=== PATIENT | female | born 1975 | race Caucasian/White ===

== ENCOUNTER 2016-10-15 10:27 | Emergency (ER) | payer MEDICAID ==
--- NOTE | 2016-10-15 11:33 | EDPHY ---
H & P Stated Complaint: Right elbow pain. HPI/ROS: CHIEF COMPLAINT: Right arm infection HISTORY OF PRESENT ILLNESS: Patient complains of redness to the right arm for 1 -2 weeks. It is mild to moderate 1st. It has worsened. It is minimally painful. There is no pain with flexion, extension, supination, or pronation of the right arm. No fever. No chills. No numbness or tingling. No significant swelling. She feels as though she might have got a scratch originally on the skin. She has not yet been seen for this. No other associated complaints or modifying factors. Tetanus is up-to-date less than 10 years ago REVIEW OF SYSTEMS: Ten systems reviewed and are negative unless otherwise noted in the HPI PAST MEDICAL HISTORY: Reviewed SOCIAL HISTORY: Occasional smoker FAMILY HISTORY: Noncontributory EXAMINATION General Appearance: Alert, no distress Head: normocephalic, atraumatic Eyes: Pupils equal and round, no conjunctival pallor or injection ENT, Mouth: Mucous membranes moist Neck: Normal inspection, supple, non-tender Respiratory: No retractions or distress Cardiovascular: Regular rate. Pulses intact distally in symmetrically Neurological: A&O, nonfocal, normal gait Skin: Warm and dry. There is cellulitis of the right posterior upper extremity. No fluctuance. No induration. No laceration or open sores. She does have a nonspecific dermatitis to the upper extremities that she attributes to stand fleas. Extremities: Nontender, no edema. There is full active and passive range of motion of both elbows without any pain or hesitation. No fluctuance. No evidence of DVT or septic joint. Psychiatric: Mood and affect normal DIFFERENTIAL DIAGNOSES: Including but not limited to cellulitis, DVT, septic joint, abscess MDM: 11:30 a.m. Right upper extremity cellulitis that it starts proximal and extends distal to the elbow. She has no bony tenderness of the elbow. She has no pain with flexion extension, active or passive. She does not want x-ray of the elbow. I do feel she warrants oral antibiotics for cellulitis. I have no suspicion for DVT as this is a localized cellulitis without circumferential erythema. There is no edema of the arm. No laceration. Discharged home with oral antibiotics. Recheck in 48 hours. Return here for worsening symptoms, any pain in the joint. Also return for any fever. She is comfortable with this plan and discharged home stable condition SUPERVISION: This patient was independently evaluated without direct examination by the attending physician. Case was discussed with attending physician. Source: Patient Exam Limitations: No limitations - Personal History LMP (Females 10-55): Unknown Current Tetanus/Diphtheria Vaccine: Unsure Current Tetanus Diphtheria and Acellular Pertussis (TDAP): Unsure - Medical/Surgical History Hx Asthma: No Hx Chronic Respiratory Disease: No Hx Diabetes: No Hx Cardiac Disease: No Hx Renal Disease: No Hx Cirrhosis: No Hx Alcoholism: No Hx HIV/AIDS: No Hx Splenectomy or Spleen Trauma: No Other PMH: Denies - Social History Smoking Status: Never smoked Constitutional: Initial Vital Signs Temperature (C) 98.4 F 10/15/16 10:42 Heart Rate 87 10/15/16 10:42 Respiratory Rate 15 10/15/16 10:42 Blood Pressure 145/76 H 10/15/16 10:42 O2 Sat (%) 98 10/15/16 10:42 O2 Delivery Mode Room Air Allergies/Adverse Reactions: acetaminophen [From Percocet] Allergy (Verified 10/15/16 10:40) beeswax Allergy (Verified 10/15/16 10:41) codeine Allergy (Verified 10/15/16 10:41) oxycodone [From Percocet] Allergy (Verified 10/15/16 10:40) tree nut [Nuts] Allergy (Verified 10/15/16 10:40) Home Medications: Medication Instructions Recorded Clindamycin 300 mg PO Q6 #80 cap 10/15/16 Departure - Departure Disposition: Home, Routine, Self-Care Clinical Impression: Cellulitis of arm, right Condition: Good Instructions: Cellulitis (ED) Additional Instructions: 1. Antibiotics as discussed 2. Return here in 48 hours for recheck of the wound or with primary care physician 3. Return to the ER sooner for any fever, pain in the right elbow, worsening redness, swelling of the right arm Referrals: NONE *PRIMARY CARE P,. [Primary Care Provider] - As per Instructions [facility],. [Clinic] - As per Instructions Daniella Barger MD [place] [place] - As per Instructions Prescriptions: Clindamycin 300 mg PO Q6 #80 cap
[2016-10-15 11:49] VITALS: BP 125/83; PULSE 85; RESP 16; TEMP 98.2; O2SAT 96
== END 2016-10-15 11:43 | disposition home or self-care (01) ==
DX: L03.113 Cellulitis of right upper limb (principal)

== ENCOUNTER 2016-10-17 19:30 | Emergency (ER) | payer MEDICAID ==
[2016-10-17 19:40] VITALS: BP 135/84; PULSE 88; RESP 16; TEMP 99; O2SAT 99
--- NOTE | 2016-10-17 19:51 | EDPHY ---
H & P Stated Complaint: wound recheck; worsening HPI/ROS: CHIEF COMPLAINT: Right arm skin infection, elbow pain HISTORY OF PRESENT ILLNESS: Patient was here 2 days ago, and I evaluated her for a right arm infection. At that time she had a cellulitis over the right posterior arm spanning the brachium and the forearm. I discharged her home with clindamycin. She has been taking this as prescribed. She says the redness had significantly improved. Her swelling improved. Her pain improved. Until this morning around 4:30 a.m., when she noted some more swelling over the right posterior elbow. She notes some drainage from the site. It is mildly painful. Still difficulty or pain bending or extending the elbow, or rotating the arm and pronation or supination. No fever or chills. No numbness or tingling. No other associated complaints or modifying factors. REVIEW OF SYSTEMS: Ten systems reviewed and are negative unless otherwise noted in the HPI PAST MEDICAL HISTORY: Reviewed SOCIAL HISTORY: Daily cannabis use FAMILY HISTORY: Noncontributory EXAMINATION General Appearance: Alert, no distress, unkempt Head: normocephalic, atraumatic Eyes: Pupils equal and round, no conjunctival pallor or injection ENT, Mouth: Mucous membranes moist Neck: Normal inspection, supple, non-tender Respiratory: Lungs are clear retractions or distress Cardiovascular: Regular rate. Pulses intact distally with symmetric radial pulses are 2+ Neurological: A&O, nonfocal, normal gait. Two point sensation intact in the right upper extremity. Radial and median distributions intact. Skin: Warm and dry, no rash. There is mild erythema over the right posterior arm. This is improved from my previous evaluation of her 2 days ago. There is now a fluctuance over the right olecranon bursa with some spontaneous purulent drainage. There is no warmth to the joint. No evidence of septic arthritis. Extremities: Mild tenderness over the area of the right olecranon bursa. There is no tenderness of the humeral condyles or radial head. Range of motion is intact and painless with flexion, extension, supination, pronation of the right upper extremity and elbow. Neurovascular intact distal to the area of bursitis Psychiatric: Mood and affect normal DIFFERENTIAL DIAGNOSES: Including but not limited to infected olecranon bursa, septic joint, cellulitis , arm and cellulitis, abscess MDM: 7:50 p.m. Right arm cellulitis that has actually improved, but she now appears to have an infected bursa. There is still no evidence of septic joint as she continues to improve with her level of pain, her range of motion is intact and painless. I do feel she would benefit from a mild incision and drainage or of the purulence. Continue on the antibiotic. I will discuss with my attending physician Dr. Sotelo. 8:[address] Sotelo has evaluated the patient. He agrees that there is no evidence of septic joint. Recommends no incision and drainage of this infected bursa. He recommends that we continue with her clindamycin and let the wound continued to drain. Patient has an appointment on Tuesday at [facility], and we are in agreement that she should be evaluated on that day. She should return to the ER if unable to keep that appointment. She should return to the ER for any worsening drainage, pain of the elbow, difficulty flexing or extending the elbow , difficulty with supination or pronation. She should also return for any fever. She should also return should she develop any numbness, tingling or weakness of the extremity. She is comfortable with this plan and she is discharged home with a nonocclusive dressing to the bursa. She is in no acute distress, full range of motion and vital signs stable at time of discharge. SUPERVISION: Patient was evaluated in conjunction with the supervising physician. Please see their note for details. Source: Patient, Old records Exam Limitations: No limitations - Personal History LMP (Females 10-55): 22-28 Days Ago Current Tetanus/Diphtheria Vaccine: Yes - Medical/Surgical History Hx Asthma: No Hx Chronic Respiratory Disease: No Hx Diabetes: No Hx Cardiac Disease: No Hx Renal Disease: No Hx Cirrhosis: No Hx Alcoholism: No Hx HIV/AIDS: No Hx Splenectomy or Spleen Trauma: No Other PMH: PMHx: asthma, PTSD, adjustment disorder, cervical, uteral, and vulval cancer, scoliosis. PSHx: LEAP, laser surgery on vulva - Social History Smoking Status: Never smoked Constitutional: Initial Vital Signs Temperature (C) 99.0 F 10/17/16 19:35 Heart Rate 88 10/17/16 19:35 Respiratory Rate 16 10/17/16 19:35 Blood Pressure 135/84 H 10/17/16 19:35 O2 Sat (%) 99 10/17/16 19:35 O2 Delivery Mode Room Air Allergies/Adverse Reactions: acetaminophen [From Percocet] Allergy (Verified 10/15/16 10:40) bee venom protein (honey bee) Allergy (Verified 10/17/16 19:35) codeine Allergy (Verified 10/15/16 10:41) oxycodone [From Percocet] Allergy (Verified 10/15/16 10:40) tree nut [Nuts] Allergy (Verified 10/15/16 10:40) Home Medications: Medication Instructions Recorded Clindamycin 300 mg PO Q6 #80 cap 10/15/16 Proair Hfa 10/17/16 Departure - Departure Disposition: Home, Routine, Self-Care Clinical Impression: Infected olecranon bursa Qualifiers: Laterality: right Qualified Code(s): M71.121 - Other infective bursitis, right elbow Condition: Good Instructions: Cellulitis (ED), Elbow Bursitis (ED) Additional Instructions: 1. Continue your previously prescribed Clindamycin. 2. Follow up with your established appointment on Tuesday at [facility] 3. Return here for any worsening or your condition, difficulty bending, straightening or rotating the right arm or elbow, fever, or chills. Referrals: [facility] [Other] - As per Instructions Sara Phillips MD [Medical Doctor] - As per Instructions
== END 2016-10-17 20:13 | disposition home or self-care (01) ==
DX: M71.121 Other infective bursitis, right elbow (principal); J45.909 Unspecified asthma, uncomplicated; Z85.41 Personal history of malignant neoplasm of cervix uteri; Z85.42 Personal history of malignant neoplasm of other parts of uterus; Z85.44 Personal history of malignant neoplasm of other female genital organs

== ENCOUNTER 2016-10-20 11:57 | Emergency (ER) | payer MEDICAID ==
[2016-10-20 12:08] VITALS: BP 116/59; PULSE 58; RESP 17; TEMP 97.9; O2SAT 99
--- NOTE | 2016-10-20 13:30 | EDPHY ---
H & P Stated Complaint: lac r elbow 3 wks ago/here for wound eval Time Seen by Provider: 10/20/16 13:18 HPI/ROS: CHIEF COMPLAINT: Right elbow recheck HISTORY OF PRESENT ILLNESS: 40-year-old female seen emergency department 3 days ago diagnosed with likely right elbow olecranon bursitis, started on oral clindamycin. Prior to that she was diagnosed with cellulitis and was on a course of antibiotics for that. She is in the ER for recheck. She had an appointment [facility] today which she was unable to keep Therefore comes to the ER. She states that she is feeling significant improvement. States that the soft tissue swelling to the dorsal aspect of the elbow has decreased notably, the erythema has decreased notably, her range of motion as increased notably. PHYSICAL EXAM (Prior to examination, patient consented to physical exam, hands were washed and my usual and customary physical exam procedures followed) 1) GENERAL: Well-developed, well-nourished, alert and oriented. Appears to be in no acute distress. 2) HEAD: Normocephalic 3) HEENT: sclera anicteric 4) LUNGS: Breathing comfortably. 5) SKIN: mild erythema to the dorsal elbow. No lymphangitic streaking. No crepitus. 6) MUSCULOSKELETAL: positive range of motion, full extension, flexion to approximately 90 degrees of the right elbow, supination pronation without pain. 7) NEUROLOGIC: Full sensation distally - Personal History LMP (Females 10-55): 22-28 Days Ago Current Tetanus/Diphtheria Vaccine: Yes - Medical/Surgical History Hx Asthma: No Hx Chronic Respiratory Disease: No Hx Diabetes: No Hx Cardiac Disease: No Hx Renal Disease: No Hx Cirrhosis: No Hx Alcoholism: No Hx HIV/AIDS: No Hx Splenectomy or Spleen Trauma: No Other PMH: PMHx: asthma, PTSD, adjustment disorder, cervical, uteral, and vulval cancer, scoliosis. PSHx: LEAP, laser surgery on vulva - Social History Smoking Status: Current every day smoker Constitutional: Initial Vital Signs Temperature (C) 36.6 C 10/20/16 12:05 Heart Rate 58 L 10/20/16 12:05 Respiratory Rate 17 10/20/16 12:05 Blood Pressure 116/59 L 10/20/16 12:05 O2 Sat (%) 99 08/09/17 12:05 O2 Delivery Mode Room Air Allergies/Adverse Reactions: acetaminophen [From Percocet] Allergy (Verified 10/20/16 12:05) bee venom protein (honey bee) Allergy (Verified 10/20/16 12:05) codeine Allergy (Verified 10/20/16 12:05) oxycodone [From Percocet] Allergy (Verified 10/20/16 12:05) tree nut [Nuts] Allergy (Verified 10/20/16 12:05) Home Medications: Medication Instructions Recorded Clindamycin 300 mg PO Q6 #80 cap 10/15/16 Proair Hfa 10/17/16 Medical Decision Making ED Course/Re-evaluation: This patient appears to be responding well to her oral clindamycin. She has resolving septic bursitis, increased range of motion. Recommend she continue this until finished, she is unable to be seen the [facility] today. Currently the disease case manager is not available in the emergency department. Recommend patient follow up with [facility] in 2 days. Usual and customary wound and orthopedic precautions instructions provided. Departure - Departure Disposition: Home, Routine, Self-Care Clinical Impression: Bursitis of right elbow Qualifiers: Elbow bursitis location: olecranon bursitis Qualified Code(s): M70.21 - Olecranon bursitis, right elbow Condition: Good Instructions: Elbow Bursitis (ED) Additional Instructions: Return to the ER if you develop red streaks, worsening pain, or any other symptoms that concern Referrals: [facility] [Other] - 1-2 days without fail
== END 2016-10-20 13:45 | disposition home or self-care (01) ==
DX: M70.21 Olecranon bursitis, right elbow (principal); J45.909 Unspecified asthma, uncomplicated; F17.200 Nicotine dependence, unspecified, uncomplicated; Z85.41 Personal history of malignant neoplasm of cervix uteri; Z85.42 Personal history of malignant neoplasm of other parts of uterus

== ENCOUNTER 2016-10-27 13:24 | Emergency (ER) | payer MEDICAID ==
[2016-10-27 13:36] VITALS: BP 114/74; PULSE 76; RESP 16; TEMP 98.6; O2SAT 96
--- NOTE | 2016-10-27 15:03 | EDPHY ---
H & P Stated Complaint: Still has infection R elbow Time Seen by Provider: 10/27/16 14:48 HPI/ROS: CHIEF COMPLAINT: Wound check HISTORY OF PRESENT ILLNESS: The patient presents to the ED requesting wound check of her right elbow. The patient has an olecranon bursitis which she treated with clindamycin. She had improvement of her erythema. She noticed a scant amount of discharge from the elbow today which prompted her visit to the emergency department. The patient has no complaints of fever. She denies numbness or weakness. She denies additional complaints. REVIEW OF SYSTEMS: A comprehensive 10 point review of systems is otherwise negative aside from elements mentioned in the history of present illness. Source: Patient Exam Limitations: No limitations - Personal History LMP (Females 10-55): Now Current Tetanus Diphtheria and Acellular Pertussis (TDAP): Yes - Medical/Surgical History Hx Asthma: No Hx Chronic Respiratory Disease: No Hx Diabetes: No Hx Cardiac Disease: No Hx Renal Disease: No Hx Cirrhosis: No Hx Alcoholism: No Hx HIV/AIDS: No Hx Splenectomy or Spleen Trauma: No Other PMH: PMHx: asthma, PTSD, adjustment disorder, cervical, uteral, and vulval cancer, scoliosis. PSHx: LEAP, laser surgery on vulva - Social History Smoking Status: Current every day smoker - Physical Exam Exam: General Appearance: Disheveled, no acute distress Eyes: Pupils equal and round no pallor or injection ENT, Mouth: Mucous membranes moist Respiratory: There are no retractions, lungs are clear to auscultation Cardiovascular: Regular rate and rhythm Gastrointestinal: Abdomen is soft and nontender, no masses, bowel sounds normal Neurological: Neurologically intact throughout the right upper extremity Skin: No cellulitis or abscess noted Musculoskeletal: Neck is supple nontender Extremities: Evidence of old right olecranon bursitis present, no evidence of active cellulitis, drainage or recurrent effusion Constitutional: Initial Vital Signs Temperature (C) 37 C 10/27/16 13:25 Heart Rate 76 10/27/16 13:25 Respiratory Rate 16 10/27/16 13:25 Blood Pressure 114/74 10/27/16 13:25 O2 Sat (%) 96 10/27/16 13:25 O2 Delivery Mode Room Air Allergies/Adverse Reactions: acetaminophen [From Percocet] Allergy (Verified 10/27/16 13:24) bee venom protein (honey bee) Allergy (Verified 10/27/16 13:24) codeine Allergy (Verified 10/27/16 13:24) oxycodone [From Percocet] Allergy (Verified 10/27/16 13:24) tree nut [Nuts] Allergy (Verified 10/27/16 13:24) Home Medications: Medication Instructions Recorded Clindamycin 300 mg PO Q6 #80 cap 10/15/16 Proair Hfa 10/17/16 Medical Decision Making ED Course/Re-evaluation: The patient presents to the emergency department for a wound check. She has no evidence of a recurrent septic bursitis, cellulitis or abscess. I do feel that the patient can be discharged home without additional antibiotic therapy. She is discharged home with customary aftercare instructions and return precautions. Departure - Departure Disposition: Home, Routine, Self-Care Clinical Impression: Wound check, abscess Condition: Good Instructions: Elbow Bursitis (ED) Additional Instructions: 1. Please keep your elbow clean and dry. 2. Return to the ED for increased pain, swelling, fever, redness or other concerns. 3. Please schedule a follow-up appointment with your primary care provider as needed. Referrals: [facility] [Other] - As per Instructions
== END 2016-10-27 15:11 | disposition home or self-care (01) ==
DX: Z48.01 Encounter for change or removal of surgical wound dressing (principal); F17.200 Nicotine dependence, unspecified, uncomplicated; J45.909 Unspecified asthma, uncomplicated; Z85.41 Personal history of malignant neoplasm of cervix uteri; Z85.44 Personal history of malignant neoplasm of other female genital organs

== ENCOUNTER → 2017-04-18 | Outpatient (CLI) | payer MEDICAID | LOC: FIMAGING 12:47 | PROVIDERS: ATTEND Family Medicine | DX: O09.521 Supervision of elderly multigravida, first trimester (principal); O26.21 Pregnancy care for patient with recurrent pregnancy loss, first trimester; O99.331 Smoking (tobacco) complicating pregnancy, first trimester; Z87.59 Personal history of other complications of pregnancy, childbirth and the puerperium; Z3A.12 12 weeks gestation of pregnancy ==

== ENCOUNTER → 2017-06-06 | Outpatient (CLI) | payer MEDICAID | LOC: FIMAGING 11:14 | PROVIDERS: ATTEND Family Medicine | DX: O09.522 Supervision of elderly multigravida, second trimester (principal); O26.22 Pregnancy care for patient with recurrent pregnancy loss, second trimester; O34.42 Maternal care for other abnormalities of cervix, second trimester; O99.332 Smoking (tobacco) complicating pregnancy, second trimester; Z59.0 Homelessness; Z3A.19 19 weeks gestation of pregnancy; Z87.59 Personal history of other complications of pregnancy, childbirth and the puerperium ==

== ENCOUNTER → 2017-06-20 | Outpatient (CLI) | payer MEDICAID | LOC: FIMAGING 12:19 | PROVIDERS: ATTEND Family Medicine | DX: O09.522 Supervision of elderly multigravida, second trimester (principal); Z3A.21 21 weeks gestation of pregnancy; Z59.0 Homelessness ==

== ENCOUNTER → 2017-06-28 | Outpatient (CLI) | payer MEDICAID | LOC: FIMAGING 07:49 | PROVIDERS: ATTEND Family Medicine | DX: O09.522 Supervision of elderly multigravida, second trimester (principal); O09.212 Supervision of pregnancy with history of pre-term labor, second trimester; Z3A.22 22 weeks gestation of pregnancy; F17.210 Nicotine dependence, cigarettes, uncomplicated ==

== ENCOUNTER 2017-07-02 16:56 | Emergency (ER) | payer MEDICAID ==
--- NOTE | 2017-07-02 17:17 | EDPHY ---
H & P Time Seen by Provider: 07/02/17 17:06 HPI/ROS: Chief complaint. Dental pain HPI. 41-year-old female with dental pain. She saw a dentist at [facility] 2 days ago. Started on clindamycin. She has a follow-up appointment on Tuesday. Complains of continued pain despite the antibiotics. No fever. Patient is also 23 weeks . No trouble swallowing. ROS Constitutional. no fever/chills, no weakness Eyes. no problems with vision ENT. Dental pain Cardiovascular. no chest pain Respiratory. no shortness of breath, no cough Abdominal. no abdominal pain, no nausea/vomiting, no diarrhea . no problems urinating MS. no calf pain/swelling, no neck/back pain, no joint pain Skin. no rash Lymph. no swollen glands Neuro. no headache, no dizziness, no difficulty walking or with speech Past Medical/Surgical History: Asthma, PTSD, adjustment disorder, cervical and vulvar cancer, scoliosis, LEEP procedure Social History: Single, daily smoker, no alcohol Smoking Status: Current every day smoker Physical Exam: General Appearance: Alert well-developed female mild distress vital signs are stable. Afebrile Eyes: Pupils equal and round no pallor or injection. ENT, widespread dental caries. Slight erythema to the left upper incisor socket area. No abscess. No purulent drainage. Respiratory: There are no retractions, lungs are clear to auscultation. Cardiovascular: Regular rate and rhythm. Gastrointestinal: Abdomen is soft and nontender, no masses, bowel sounds normal. Neurological: Awake and alert, sensory and motor exams grossly normal. Skin: Warm and dry, no rashes. Musculoskeletal: Neck is supple nontender. Extremities symmetrical, full range of motion. Psychiatric: Patient is oriented X 3, there is no agitation. Constitutional: Initial Vital Signs Temperature (C) 37 C 07/02/17 17:02 Heart Rate 92 07/02/17 17:02 Respiratory Rate 18 07/02/17 17:02 Blood Pressure 122/71 H 07/02/17 17:02 O2 Sat (%) 98 07/02/17 17:02 O2 Delivery Mode Room Air Allergies/Adverse Reactions: acetaminophen [From Percocet] Allergy (Verified 07/02/17 16:59) bee venom protein (honey bee) Allergy (Verified 07/02/17 16:59) codeine Allergy (Verified 07/02/17 16:59) oxycodone [From Percocet] Allergy (Verified 07/02/17 16:59) tree nut [Nuts] Allergy (Verified 07/02/17 16:59) Home Medications: Medication Instructions Recorded Clindamycin 300 mg PO Q6 #80 cap 10/15/16 Proair Hfa 10/17/16 Medical Decision Making ED Course/Re-evaluation: Ibuprofen 600 mg. The patient and I discussed treatment plan including continuing the clindamycin. We talked about keeping her follow-up appointment on Tuesday. We talked about criteria for return and importance of follow-up and further evaluation. She expresses understanding and agreement Differential Diagnosis: Dental caries with tooth socket infection but no abscess. On antibiotics. 23 week Departure - Departure Disposition: Home, Routine, Self-Care Clinical Impression: Dental caries Condition: Good Instructions: Toothache (ED) Additional Instructions: Continue clindamycin as prescribed. Ibuprofen 600 mg every 6 hr. May use ibuprofen until 26 weeks . Tylenol 1000 mg every 4-6 hours for pain. Return for worsening swelling or pain or fever. Keep your follow-up appointment with [facility] on Tuesday Referrals: Gricelda Hatch, PAC [Primary Care Provider] - 2-3 days, if not improved
[2017-07-02] MEDS ORDERED: IBUPROFEN 600 MG TAB PO ONE (17:28)
[2017-07-02 17:39] VITALS: BP 135/98
== END 2017-07-02 17:40 | disposition home or self-care (01) ==
DX: K02.9 Dental caries, unspecified (principal); J45.909 Unspecified asthma, uncomplicated; F17.200 Nicotine dependence, unspecified, uncomplicated; Z85.44 Personal history of malignant neoplasm of other female genital organs

== ENCOUNTER → 2017-07-04 | Outpatient (CLI) | payer MEDICAID | LOC: FIMAGING 12:50 | PROVIDERS: ATTEND Family Medicine | DX: O09.212 Supervision of pregnancy with history of pre-term labor, second trimester (principal); O09.522 Supervision of elderly multigravida, second trimester; O99.332 Smoking (tobacco) complicating pregnancy, second trimester; F17.210 Nicotine dependence, cigarettes, uncomplicated; Z59.0 Homelessness; Z3A.23 23 weeks gestation of pregnancy ==

== ENCOUNTER → 2017-08-22 | Outpatient (CLI) | payer MEDICAID | LOC: FIMAGING 13:48 | PROVIDERS: ATTEND Family Medicine | DX: O24.415 Gestational diabetes mellitus in pregnancy, controlled by oral hypoglycemic drugs (principal); O09.523 Supervision of elderly multigravida, third trimester; O99.333 Smoking (tobacco) complicating pregnancy, third trimester; F17.210 Nicotine dependence, cigarettes, uncomplicated; Z87.59 Personal history of other complications of pregnancy, childbirth and the puerperium; Z3A.30 30 weeks gestation of pregnancy; Z59.0 Homelessness ==

== ENCOUNTER 2017-10-08 17:45 | Inpatient (IN) | payer MEDICAID ==
[2017-10-08] MEDS ORDERED: MISOPROSTOL 200 MCG TAB PO PRN (19:35)
[2017-10-08] MEDS ORDERED: AMMONIA AROMATIC 1 EACH AMP IH PRN (19:35)
[2017-10-08] MEDS ORDERED: IBUPROFEN 600 MG TAB PO PRN (19:35)
[2017-10-08] MEDS ORDERED: EPSOM SALT 454 GM TP PRN (19:35)
[2017-10-08] MEDS ORDERED: LIDOCAINE 1% 300 MG/30 ML SDV SC PRN (19:35)
[2017-10-08] MEDS ORDERED: TERBUTALINE SULFATE 1 MG/ML VIAL IV PRN (19:35)
[2017-10-08] MEDS ORDERED: LR 1,000 ML IV PRN (19:35)
[2017-10-08] MEDS ORDERED: OLIVE OIL 118 ML BTL MISC PRN (19:35)
[2017-10-08] MEDS ORDERED: LIDOCAINE 1% 300 MG/30 ML SDV ONE (19:39)
[2017-10-08] MEDS ORDERED: LR 500 ML IV PRN (19:39)
[2017-10-08] MEDS ORDERED: TERBUTALINE SULFATE 1 MG/ML VIAL ONE (19:40)
[2017-10-08] MEDS ORDERED: OLIVE OIL 118 ML BTL ONE (19:40)
[2017-10-08] MEDS ORDERED: OXYTOCIN 10 UNIT/ML VIAL ONE (19:40)
[2017-10-08] MEDS ORDERED: AMMONIA AROMATIC 1 EACH AMP IH ONE (19:40)
[2017-10-08] MEDS ORDERED: MISOPROSTOL 200 MCG TAB ONE (19:40)
--- NOTE | 2017-10-08 19:46 | PDGENHP ---
History and Physical History and Physical: CARE: [facility] HPI: Kirstie is a 41 y/o at 37 weeks ega who presents to L&D with complaints of SROM of clear fluid at 1515. She is homeless and has received care at [facility]. Does not have custody of her other children - and according to record, patient has been flagged with CPS and may not be able to keep her baby. Has been noted to make delusional statements about medical history and social history. Was planning delivery at [facility], but was brought here by EMS because we were the closest hospital. She is having mild irregular contractions and is leaking clear fluid. Reports baby is active and denies vaginal bleeding. EDC: 10/29/2017 that is based on LMP: 01/22/17 which is known and consistent with Ultrasound at 9 weeks. Her is complicated by: -AMA -Gestational diabetes - taking glyburide 2.5 mg bid -reports blood sugars have been in good control -schizophrenia with psychotic disorder - followed by Angelina Pena at [facility]. Treated with Latuda. -homeless - "camps" in a friends yard in [facility] - states she has housing vouchers lined up after delivery -tobacco use -chronic UTIs - takes Amoxicillin 500 mg daily - asthma Review of Systems: Constitutional: Denies any fever, chills, or fatigue HEENT: denies any visual changes, difficulty swallowing, hearing loss Cardiovascular: Denies any chest pain, palpitations, leg swelling Respiratory: denies any cough, wheezing, or shortness of breathe GI: Denies any nausea, vomiting, diarrhea, constipation : denies any dysuria, urgency, frequency, vaginal bleeding Musculoskeletal: denies any muscle or bone pain Skin: denies any rashes Neuro: denies any headache, seizures, lightheadedness, dizziness, or loss of consciousness Psychiatric: denies any depression, anxiety, or SI/HI thoughts HISTORY: Previous OB history: 36 wks, 42 wks, ; 40 wks; ' 39 wks, ' 37 wks Past medical history: h/o leep 2006, asthma, schizophrenia with psychotic disorder, chronic UTI's, cervical and vulvar cancer per patient report Past surgical history: none Medications: PNV, Glyburide, Latuda, Proair HFA, Amoxicillin Allergies: acetaminophen, bee venom, codeine, oxycodone, tree nuts LABS: Rh: O pos ABS: neg Rubella: Immune HbsAg: NR HIV: NR VDRL: NR 1hr: 153; 3 hr: elevated GC: Neg Chlamydia: Neg Pap: Normal GBS: neg NIPT/AFP WNL PHYSICAL EXAM: Constitutional: WN, A&Ox3 HEENT: normocephalic atraumatic, supple Heart: RRR, no murmur Chest: CTA-B Abdomen: Soft, nontender, gravid SVE: 3/90/-3 Extremities: sml pedal edema, negative gus's sign Neuro: grossly normal Psych: normal affect assessment: Reassuring FHTs, baseline 130s +accels, no decels, moderate variability Contractions: toco q 4-8 mild Assessment: 1) 41 yo with IUP@37 weeks ega 2) SROM without active labor 3) GBS neg 4) Cat 1 FHR tracing 5) Gestational diabetic 6) homeless with significant social issues and mental health challenges Plan: 1) Admit to L&D 2) Pitocin augmentation 3) Blood sugars q 2 hours 4) clear liquid diabetic diet 5) Epidural per patient request 6) Social work consult 7) UDS 8) Anticipate
[2017-10-08] MEDS ORDERED: OXYTOCIN/RINGERS LACTATE 500 ML IV SCH (20:00)
[2017-10-08 20:25] LABS: PLATELET COUNT 223 10^3/uL (150-400)
[2017-10-08] MEDS ORDERED: PHENYLEPHRINE HCL 100 MCG/ML SYR ONE (20:46)
[2017-10-08] MEDS ORDERED: fentaNYL 200 MCG, BUPIVACAINE 0.5% 20 ML in NS 100 ML EP SCH (21:00)
--- NOTE | 2017-10-08 21:19 | PREANESOB ---
Obstetric Pre-Anesthesia Info - General Info Proposed Procedure: labor epidural : 6 Para: 4 NICANOR: 10/29/17 Gestational Age: 37 week(s) and 0 day(s) Anesthesia ROS: wnl Allergies/Adverse Reactions: Allergy/AdvReac Type Severity Reaction Status Date / Time acetaminophen [From Percocet] Allergy Verified 07/02/17 16:59 bee venom protein (honey bee) Allergy Verified 07/02/17 16:59 codeine Allergy Verified 07/02/17 16:59 oxycodone [From Percocet] Allergy Verified 07/02/17 16:59 tree nut [Nuts] Allergy Verified 07/02/17 16:59 Home Medications: Medication Instructions Recorded Clindamycin 300 mg PO Q6 #80 cap 10/15/16 Proair Hfa 10/17/16 Visit Medications: Generic Name Dose Route Start Last Admin Trade Name Freq PRN Reason Stop Dose Admin Ammonia (Aromatic Spirit) 1 each 10/08/17 19:35 Ammonia Aromatic IH 10/18/17 19:34 ONCE PRN Fainting Lactated Ringer's 1,000 mls @ 0 mls/hr 10/08/17 19:35 10/08/17 20:28 Lr IV 10/09/17 19:34 1,000 mls PRN PRN Administration SEE PROTOCOL CONDITIONS Protocol Per Protocol Lactated Ringer's 500 mls @ 500 mls/hr 10/08/17 19:39 Lr IV 10/09/17 19:39 PRN PRN Maternal Hypotension Oxytocin/Lactated Ringer's 500 mls @ 0 mls/hr 10/08/17 20:00 10/08/17 20:30 Pitocin 30 Units/Lr (Premix) IV 04/06/18 19:59 500 mls CONT MAREN Administration Protocol Per Protocol Fentanyl 200 mcg/ Bupivacaine 100 mls @ 0 mls/hr 10/08/17 21:00 HCl 20 ml/ Sodium Chloride EP 10/18/17 20:59 CONT MAREN Protocol As Directed Lactated Ringer's 500 mls @ 0 mls/hr 10/08/17 21:30 Lr IV 04/06/18 21:29 CONT MAREN As Directed Ibuprofen 600 mg 10/08/17 19:35 Motrin PO ONCE PRN post , pain Lidocaine HCl 300 mg 10/08/17 19:35 Lidocaine Hcl 1% SC 04/06/18 19:34 ONCE PRN episiotomy Magnesium Sulfate 454 gm 10/08/17 19:35 Epsom Salt TP 04/06/18 19:34 Q1H PRN perineal discomfort Misoprostol 800 - 1,000 mcg 10/08/17 19:35 Cytotec PO 04/06/18 19:34 ONCE PRN Vaginal Atony/Bleeding Bishop Oil 118 ml 10/08/17 19:35 Sweet Oil MISC 04/06/18 19:34 ONCE PRN perineal massage Terbutaline Sulfate 0.25 mg 10/08/17 19:35 Brethine IV 04/06/18 19:34 ONCE PRN Tachysystole Discontinued Medications Generic Name Dose Route Start Last Admin Trade Name Freq PRN Reason Stop Dose Admin Ammonia (Aromatic Spirit) Confirm 10/08/17 19:40 Ammonia Aromatic Administered 10/08/17 19:41 Dose 1 each IH .STK-MED ONE Lidocaine HCl Confirm 10/08/17 19:39 Lidocaine Hcl 1% Administered 10/08/17 19:40 Dose 300 mg .ROUTE .STK-MED ONE Misoprostol Confirm 10/08/17 19:40 Cytotec Administered 10/08/17 19:41 Dose 1,000 mcg .ROUTE .STK-MED ONE Bishop Oil Confirm 10/08/17 19:40 Sweet Oil Administered 10/08/17 19:41 Dose 118 ml .ROUTE .STK-MED ONE Oxytocin Confirm 10/08/17 19:40 Pitocin Administered 10/08/17 19:41 Dose 40 unit .ROUTE .STK-MED ONE Phenylephrine HCl Confirm 10/08/17 20:46 Neosynephrine Administered 10/08/17 20:47 Dose 1,000 mcg .ROUTE .STK-MED ONE Terbutaline Sulfate Confirm 10/08/17 19:40 Brethine Administered 10/08/17 19:41 Dose 1 mg .ROUTE .STK-MED ONE - Vital Signs Height/Weight (Nursing): Height 170.18 cm Weight 94.801 kg - Focused Exam Neck exam: FROM Mallampati Score: Class 2 Mouth exam: poor dentition Pulmonary: no respiratory distress Cardiovascular: regular rate and rhythym Labs: 10/08/17 19:30 Patient ABO/Rh O POSITIVE 10/08/17 19:30 - Plan Consent Signed and on Chart: Yes Patient/Guardian Understands and Agrees to Plan: Yes Urgent/Emergent Case: Page salcedo completed preop but documented later for safe timely pt care
[2017-10-08] MEDS ORDERED: fentaNYL 2MCG/ML/BUP 0.1% RTU 100 ML EP SCH (21:30)
[2017-10-08] MEDS ORDERED: LR 500 ML IV SCH (21:30)
[2017-10-08] MEDS ORDERED: DOCUSATE SODIUM 100 MG CAP PO PRN (23:35)
[2017-10-08] MEDS ORDERED: HYDROCORTISONE 0.5% CREAM TP PRN (23:35)
[2017-10-08] MEDS ORDERED: SIMETHICONE 80 MG TAB CHEW PO PRN (23:35)
--- NOTE | 2017-10-08 23:40 | OBDEL ---
Info Type: Vaginal Presentation at Delivery: Vertex L&D Analgesia/Anesthesia Type: Epidural GBS+: No Intrapartum Medications: Generic Name Dose Route Start Last Admin Trade Name Freq PRN Reason Stop Dose Admin Lactated Ringer's 1,000 mls @ 0 mls/hr 10/08/17 19:35 10/08/17 20:28 Lr IV 10/09/17 19:34 1,000 mls PRN PRN Administration SEE PROTOCOL CONDITIONS Protocol Per Protocol Oxytocin/Lactated Ringer's 500 mls @ 0 mls/hr 10/08/17 20:00 10/08/17 20:30 Pitocin 30 Units/Lr (Premix) IV 04/06/18 19:59 500 mls CONT MAREN Administration Protocol Per Protocol Indications for Delivery: SROM Vaginal Delivery - Delivery Provider Delivery Physician/CNM: Ginette Miguel - Labor and Delivery Onset of Contractions Date: 10/08/17 Onset of Contractions Time: 15:15 Onset of Contractions Type: Augmented Rupture of Membranes Date: 10/08/17 Rupture of Membranes Time: 15:15 Rupture of Membranes Type: Spontaneous Amniotic Fluid Color: Clear Dilation Complete Date: 10/08/17 Dilation Complete Time: 23:15 Placenta Delivery Date: 10/08/17 Placenta Delivery Time: 23:24 Total Hours of Labor: 8 Vaginal Sponge Count Correct: Yes Vaginal Needle Count Correct: Yes Vaginal Sweep Performed: No EBL: 150 Delivery Events: None - Medications Labor Augmentation/Induction Methods Used: Pitocin Labor Augmentation/Induction Indication: Contraction Strength Inadequate Data NICANOR: 10/29/17 Gestational Age: 37 week(s) and 0 day(s) [place] Delivery Date: 10/08/17 Delivery Time: 23:19 Sex of : Male Score (1 Min): 10 Score (5 Min): 10 ICD10 Worksheet Patient Problems: Problems Problem Status Onset AMA (advanced maternal age) multigravida 35+ Acute Gestational diabetes Acute Vaginal delivery Acute - ICD10 Problem Qualifiers (1) AMA (advanced maternal age) multigravida 35+ Qualifiers: Trimester: third trimester Qualified Code(s): O09.523 - Supervision of elderly multigravida, third trimester (2) Vaginal delivery (3) Gestational diabetes
--- NOTE | 2017-10-09 07:33 | POSTANESTH ---
Post Anesthetic Evaluation Cardiovascular Status: Normal, Stable Respiratory Status: Normal, Stable Level of Consciousness/Mental Status: Can Participate in Eval Pain Control: Adequate, Prn Tx Ordered Nausea/Vomiting Control: Adequate, Prn Tx Ordered Complications Possibly Related to Anesthesia: None Noted
--- NOTE | 2017-10-09 14:51 | ASMTCMCOM ---
CM Note CM Note Notes: 41yo female G6 is healthy tox screen (-). Kirstie and father -Peña Luke were camping in [place] 37wks, not expecting to go into labor, was to deliver at [facility] but ambulance brought her to [facility]. She had been getting care through [facility]. Reports that she has 2 CM, Kelsey Mao & Josafat Paul, who are assisting her with housing. Their apartment becomes available in 2wks [address], [place], [place]. Until that time the CM will have them stay in a hotel. She reports that [facility] in [place] has been helping them. Also [employer] in [place] has assisted with clothes and furniture needs. Patient reports that they have everything except a car seat. Patient is on disability for her schizophrenia as is her partner, Peña. Both have counselors through [facility] and are taking their medications. She is not because of the medications she is taking. They also have a service dog Josh who is with them in the room. She is on [employer] [place], A & D and WIC. Patient's mother has 2 of her children ages 4 and 8 whom she would also like to have custody. Kirstie reports that she has been planning all of the above 3mos b/4 she got . She was organized had all her information in notebooks, addresses & people's names memorized. Seems excited about being able to get her life together and has been able to determine the support agencies who can assist her. CPS Report to Alem Flores [phone] who will call this CM and let me know how we are to proceed. Date Signed: 10/09/2017 02:50 PM Electronically Signed By:Cesilia Jarrell LCSW
--- NOTE | 2017-10-09 15:16 | ASMTCMCOM ---
CM Note CM Note Notes: RN called to say that she had talked with Rev Reardon [phone]. He told this CM that his mandaeism was putting on a baby shower and a house warming. He thinks that the [facility] housing will be open by October 20. Sarah Mao is with [facility], hotel vouchers will be provided until permanent housing comes available. Date Signed: 10/09/2017 03:15 PM Electronically Signed By:Cesilia Jarrell LCSW
[2017-10-09] MEDS: IBUPROFEN 600 MG TAB PO SCH ×2 (15:30→21:30)
--- NOTE | 2017-10-09 19:39 | OBPP ---
Progress Note Assessment/Plan: Assessment: ppd# 1 s/p schizophrenia - mood stable on [place] bottle feeding homeless - social worker school consult. patient has good resources Plan: [place] post care 10/09/17 19:27 Subjective/ Course: 10/09/17 19:28 patient is doing well. pain is well controlled. mood is stable. is planning on bottle feeding. has been wearing supportive bra. discussed avoiding breast stimulation. normal lochia. denies headache and changes in vision. Objective: 10/08/17 19:30 Patient ABO/Rh O POSITIVE 10/08/17 19:30 Temp Pulse Resp BP Pulse Ox 36.8 C 74 16 122/80 H 94 10/09/17 08:46 10/09/17 08:46 10/09/17 08:46 10/09/17 08:46 10/09/17 08:46 Physical Exam - Physical Exam Neck: non-tender, full range of motion, supple Respiratory: chest non-tender, lungs clear, normal breath sounds Cardiac/Chest: normal peripheral pulses, regular rate, rhythm Abdomen: normal bowel sounds, non-tender, other (fundus firm and non tender) Extremities: normal range of motion, non-tender, normal inspection, normal capillary refill Skin: normal color, warm/dry Neuro/Psych: no motor/sensory deficits, alert, normal mood/affect, oriented x 3
[2017-10-09] MEDS: LURASIDONE HCL 40 MG TAB PO SCH (20:09)
[2017-10-10] MEDS: IBUPROFEN 600 MG TAB PO SCH ×3 (03:58→17:16)
[2017-10-10 08:59] VITALS: BP 121/77
--- NOTE | 2017-10-10 09:29 | OBGCSDC ---
General Delivery Information - General Info : 6 Para: 5 Abortions: 1 Type: Vaginal L&D Analgesia/Anesthesia Type: Epidural Admission Date: 10/08/17 Labs: Patient ABO/Rh O POSITIVE 10/08/17 19:30 Hct 45.1 % (38.0-47.0) 10/08/17 19:30 - Hospital Course : 10/09/17 19:28 patient is doing well. pain is well controlled. mood is stable. is planning on bottle feeding. has been wearing supportive bra. discussed avoiding breast stimulation. normal lochia. denies headache and changes in vision. 10/10/17 09:26 Pt is doing well this am. She has min cramping controlled with Ibuprofen. She is ambulating and voiding without difficulty. Baby is doing well, she is bottle feeding because of her medications and she denies issues with breast engorgement. They have all of the resources and are ready to d.c home. Vaginal - Delivery Provider Delivery Physician/CNM: Ginette Miguel - Diagnosis Labor: Augmented Rupture of Membranes Type: Spontaneous Amniotic Fluid Color: Clear Delivery Events: None - Delivery EBL: 150 Data NICANOR: 10/29/17 Gestational Age: 37 week(s) and 2 day(s) Pisano Delivery Date: 10/08/17 Delivery Time: 23:19 Sex of : Male [place] Weight (gm): 3078 g Score (1 Min): 10 Score (5 Min): 10 Discharge Information - Discharge Information Condition: Good Instruction/Follow Up: Two Weeks, Six Weeks
--- NOTE | 2017-10-10 09:29 | OBPP ---
Progress Note Assessment/Plan: Assessment: 41 y/o PPD #2 s/p doing well Plan: D/c home today to follow-up @ [facility] 2 and 6 weeks. 10/10/17 09:28 Subjective/ Course: 10/09/17 19:28 patient is doing well. pain is well controlled. mood is stable. is planning on bottle feeding. has been wearing supportive bra. discussed avoiding breast stimulation. normal lochia. denies headache and changes in vision. 10/10/17 09:26 Pt is doing well this am. She has min cramping controlled with Ibuprofen. She is ambulating and voiding without difficulty. Baby is doing well, she is bottle feeding because of her medications and she denies issues with breast engorgement. They have all of the resources and are ready to d.c home. Objective: 10/08/17 19:30 Patient ABO/Rh O POSITIVE 10/08/17 19:30 Temp Pulse Resp BP Pulse Ox 36.9 C 62 18 121/77 H 94 10/10/17 08:25 10/10/17 08:25 10/10/17 08:25 10/10/17 08:25 10/10/17 08:25 Uterine Position/Fundal Height: Umbilicus -2 Uterine Tone: Firm Physical Exam - Physical Exam General Appearance: alert, no apparent distress Neck: non-tender, full range of motion, supple Respiratory: chest non-tender, lungs clear, normal breath sounds Cardiac/Chest: regular rate, rhythm Abdomen: normal bowel sounds Extremities: swelling (no), Jose's sign (neg)
--- NOTE | 2017-10-10 16:55 | ASMTCMCOM ---
CM Note CM Note Notes: GUANAKO Thurston has not as yet finished his investigation. [phone]; cp #[phone]. He will be back in AM to complete the process. The is not to leave with his parents at this time. Date Signed: 10/10/2017 04:55 PM Electronically Signed By:Cesilia Jarrell LCSW
[2017-10-10] MEDS: LURASIDONE HCL 40 MG TAB PO SCH (17:16)
== END 2017-10-10 19:21 | disposition home or self-care (01) | DRG 560 ==
LOC: FLD 17:45 → OBSVTOIN 19:37 → FOB 10-09 00:56
PROVIDERS: ADMIT Advanced Practice Midwife; ATTEND Obstetrics & Gynecology
PROC: 10E0XZZ Delivery of Products of Conception, External Approach (ICD-10-PCS; principal; 2017-10-08)
DX: O24.425 Gestational diabetes mellitus in childbirth, controlled by oral hypoglycemic drugs (principal); O99.344 Other mental disorders complicating childbirth; F20.9 Schizophrenia, unspecified; O99.334 Smoking (tobacco) complicating childbirth; O09.523 Supervision of elderly multigravida, third trimester; Z59.0 Homelessness; Z3A.37 37 weeks gestation of pregnancy; Z37.0 Single live birth
CPT/HCPCS: 80305; J2370; J2590; J3010; J3105